=== PATIENT | male | born 2005 ===

== ENCOUNTER 2025-04-17 14:07 | Emergency (ER) | payer BC, MEDICAID | END 2025-04-17 16:05 | disposition home or self-care (01) | LOC: JP.ED 14:07 | DX: S50.02XA Contusion of left elbow, initial encounter (principal); Z79.899 Other long term (current) drug therapy; W18.39XA Other fall on same level, initial encounter; Y93.89 Activity, other specified | CPT/HCPCS: 73080-26-LT; 73080-LT; 99283 ==